=== PATIENT | female | born 1990 | race African-American/Black ===

== ENCOUNTER 2022-05-03 02:22 | Emergency (ER) | payer BC ==
[2022-05-03] MEDS ORDERED: ACETAMINOPHEN 325 MG TABLET (FP) PO ONE (03:01)
[2022-05-03] MEDS ORDERED: LIDOCAINE 5% TOPICAL PATCH TP ONE (03:01)
[2022-05-03 03:21] VITALS: BMI 22.1
[2022-05-03] MEDS ORDERED: ACETAMINOPHEN 325 MG TABLET (FP) ONE (03:36)
[2022-05-03] MEDS ORDERED: LIDOCAINE 5% TOPICAL PATCH ONE ×2 (03:36→04:26)
[2022-05-03] MEDS ORDERED: morphine CARPU-JECT 2 MG/1 ML DISP.SYRIN IVPUSH ONE (04:13)
[2022-05-03 04:33] LABS: BASO % 0.3 % (0-2.0); EOS % 2.6 % (0-4.5); HEMATOCRIT 40.9 % (32.4-45.2); HEMOGLOBIN 13.4 GM/dL (10.7-15.3); LYMPH % 7.8 % (8-40); MCH 28.6 pg (25.7-33.7); MCHC 32.8 g/dl (32.0-36.0); MEAN CELL VOLUME 87.2 fl (80-96); MEAN PLT VOLUME 9.4 fl (7.5-11.1); MONO % 6.5 % (3.8-10.2); NEUT % 82.8 % (42.8-82.8); PLATELET COUNT 199 10^3/uL (134-434); RBC 4.68 M/mm3 (3.60-5.2); RDW 14.2 % (11.6-15.6); WHITE BLOOD COUNT 11.2 K/mm3 (4.0-10.0)
[2022-05-03 06:11] LABS: CALCIUM 8.9 mg/dL (8.5-10.1)
[2022-05-03 06:12] LABS: ALBUMIN 3.2 g/dl (3.4-5.0); BLOOD UREA NITROGEN 7.6 mg/dL (7-18)
[2022-05-03 06:15] LABS: CREATININE 0.6 mg/dL (0.55-1.3)
[2022-05-03 06:16] LABS: TOT PROT 7.7 g/dl (6.4-8.2)
[2022-05-03 06:17] LABS: BILIRUBIN,TOTAL 0.4 mg/dL (0.2-1)
[2022-05-03 08:10] VITALS: BP 122/74; PULSE 75; TEMP 97.3
[2022-05-03] MEDS ORDERED: LIDOCAINE PATCH REMOVAL MC SCH (22:00)
== END 2022-05-03 07:53 | disposition home or self-care (01) ==
LOC: JER 02:22
PROC: 3E033NZ Introduction of Analgesics, Hypnotics, Sedatives into Peripheral Vein, Percutaneous Approach (ICD-10-PCS; principal; 2022-05-03)
DX: R91.1 Solitary pulmonary nodule (principal); R07.9 Chest pain, unspecified
CPT/HCPCS: 36415; 71046-TC-FY; 71275-TC; 80053; 84703; 85025; 93005; 93010; 99285-25; Q9967

== ENCOUNTER 2022-07-19 11:21 | Day surgery (SDC) | payer OTHER ==
[2022-07-19] MEDS ORDERED: FAMOTIDINE 20 MG/50 ML IVPB 20 MG/50 ML MG IVPB ONE ×2 (12:08→12:25)
[2022-07-19] MEDS ORDERED: ONDANSETRON 4 MG/2 ML VIAL IVPUSH ONE (12:08)
[2022-07-19] MEDS ORDERED: ACETAMINOPHEN 1000 MG/100 ML BAG IVPB ONE (12:08)
[2022-07-19] MEDS ORDERED: SODIUM CHLORIDE 0.9% 500 ML INFUS.BAG IV ONE (12:08)
[2022-07-19] MEDS ORDERED: ONDANSETRON 4 MG/2 ML VIAL ONE (12:24)
[2022-07-19] MEDS ORDERED: ACETAMINOPHEN INJECTION 100 ML IVPB ONE (12:24)
[2022-07-19 13:26] LABS: BASO % 0.6 % (0-2.0); EOS % 2.8 % (0-4.5); HEMATOCRIT 45.5 % (32.4-45.2); HEMOGLOBIN 14.6 GM/dL (10.7-15.3); MCH 28.7 pg (25.7-33.7); MEAN CELL VOLUME 89.5 fl (80-96); MONO % 6.9 % (3.8-10.2); NEUT % 75.7 % (42.8-82.8); PLATELET COUNT 228 10^3/uL (134-434); RBC 5.08 M/mm3 (3.60-5.2); RDW 15.8 % (11.6-15.6); WHITE BLOOD COUNT 12.1 K/mm3 (4.0-10.0)
[2022-07-19 13:31] LABS: EPI CELLS 13 /uL (0-25.1); HYALINE CASTS 1 /uL (0-3.1); URINE APPEARANCE CLEAR; URINE BACTERIA 71 /uL (0-1359); URINE BILIRUBIN NEGATIVE (NEGATIVE); URINE COLOR YELLOW; URINE GLUCOSE (UA) NEGATIVE (NEGATIVE); URINE KETONE NEGATIVE (NEGATIVE); URINE LEUK ESTERASE TRACE (NEGATIVE); URINE NITRITE NEGATIVE (NEGATIVE); URINE PROTEIN NEGATIVE (NEGATIVE); URINE RBC 24 /uL (0-23.9); URINE WBC 10 /uL (0-25.8)
[2022-07-19 13:32] LABS: HCG,QUALITATIVE URINE Negative
[2022-07-19 13:33] LABS: INR 1.26 (0.83-1.09); PROTHROMBIN TIME (PATIENT) 14.5 SEC (9.7-13.0)
[2022-07-19 13:36] LABS: ACTIVATED PTT 33.8 SECONDS (25.2-36.5)
[2022-07-19 14:16] LABS: ALBUMIN 3.6 g/dl (3.4-5.0); BILIRUBIN,TOTAL 0.4 mg/dL (0.2-1); BLOOD UREA NITROGEN 4.7 mg/dL (7-18); CALCIUM 9.5 mg/dL (8.5-10.1); CREATININE 0.7 mg/dL (0.55-1.3); TOT PROT 9.2 g/dl (6.4-8.2)
[2022-07-19] MEDS ORDERED: morphine CARPU-JECT 2 MG/1 ML DISP.SYRIN IVPUSH ONE (15:52)
[2022-07-19] MEDS ORDERED: morphine SULFATE 4 MG/ML VIAL ONE (16:23)
[2022-07-19] MEDS ORDERED: KETOROLAC TROMETHAMINE 15 MG/ML VIAL IVPUSH ONE (17:28)
[2022-07-19] MEDS ORDERED: CEFOXITIN SODIUM 1 GM in DEXTROSE 5%-WATER - 100 ML IVPB ONE (17:28)
[2022-07-19] MEDS ORDERED: KETOROLAC TROMETHAMINE 15 MG/ML VIAL ONE (17:40)
[2022-07-19] MEDS ORDERED: ONDANSETRON 4 MG/2 ML VIAL IVPUSH PRN (22:52)
[2022-07-19] MEDS ORDERED: ACETAMINOPHEN 1000 MG/100 ML BAG IVPB PRN (22:59)
[2022-07-19] MEDS ORDERED: DEXTROSE 5%-WATER - 1,000 ML IV SCH (23:00)
[2022-07-19] MEDS ORDERED: DEXTROSE 5%-NORMAL SALINE 1,000 ML IV SCH (23:45)
[2022-07-20] MEDS: PIPERACILLIN/TAZOB 3.375 GM 3.375 GM in DEXTROSE 5%-WATER - 50 ML IVPB SCH ×2 (01:25→16:18)
[2022-07-20] MEDS ORDERED: PIPERACILLIN/TAZOB 3.375 GM 3.375 GM in DEXTROSE 5%-WATER - 50 ML IVPB SCH (02:00)
[2022-07-20] MEDS ORDERED: BUDESONIDE/FORMETEROL FUMARATE 160/4.5 mcg INHALER IH PRN (05:15)
[2022-07-20] MEDS ORDERED: ALBUTEROL SO4 HFA INHALER IH PRN ×2 (05:28→16:39)
[2022-07-20 06:43] VITALS: BMI 23.2
[2022-07-20] MEDS ORDERED: ENOXAPARIN NA (PORCINE) 40 MG/0.4 ML DISP.SYRIN SQ SCH (10:00)
[2022-07-20] MEDS ORDERED: PANTOPRAZOLE SODIUM 40 MG VIAL IVPUSH SCH (10:00)
[2022-07-20 11:35] LABS: BASO % 0.3 % (0-2.0); EOS % 2.5 % (0-4.5); HEMATOCRIT 39.4 % (32.4-45.2); HEMOGLOBIN 12.9 GM/dL (10.7-15.3); LYMPH % 11.2 % (8-40); MCH 29.1 pg (25.7-33.7); MCHC 32.7 g/dl (32.0-36.0); MEAN CELL VOLUME 88.9 fl (80-96); MONO % 6.4 % (3.8-10.2); NEUT % 79.6 % (42.8-82.8); PLATELET COUNT 192 10^3/uL (134-434); RBC 4.43 M/mm3 (3.60-5.2); RDW 15.6 % (11.6-15.6); WHITE BLOOD COUNT 8.2 K/mm3 (4.0-10.0)
[2022-07-20 11:58] LABS: CHLORIDE 106 mmol/L (98-107); SODIUM 140 mmol/L (136-145)
[2022-07-20 12:01] LABS: CALCIUM 8.6 mg/dL (8.5-10.1)
[2022-07-20 12:02] LABS: ANION GAP 8 MMOL/L (8-16); CO2 26 mmol/L (21-32); GLUCOSE,RANDOM 79 mg/dL (74-106)
[2022-07-20 12:03] LABS: MAGNESIUM 2.1 mg/dL (1.8-2.4)
[2022-07-20 12:04] LABS: SGPT/ALT 19 U/L (13-61)
[2022-07-20 12:05] LABS: CREATININE 0.6 mg/dL (0.55-1.3); PHOSPHOROUS 2.9 mg/dL (2.5-4.9); SGOT/AST 13 U/L (15-37)
[2022-07-20 12:07] LABS: BILIRUBIN,TOTAL 0.4 mg/dL (0.2-1)
[2022-07-20 12:08] LABS: ALBUMIN 2.7 g/dl (3.4-5.0); ALK PHOS 92 U/L (45-117); BLOOD UREA NITROGEN 2.6 mg/dL (7-18); TOT PROT 6.9 g/dl (6.4-8.2)
[2022-07-20] MEDS ORDERED: BUPIVACAINE HCL/PF 0.5% (5MG/ML) 10 ML VIAL ONE (13:26)
[2022-07-20] MEDS ORDERED: DEXAMETHASONE SOD PHOSPHATE 4 MG/1 ML VIAL ONE (13:38)
[2022-07-20] MEDS ORDERED: ONDANSETRON 4 MG/2 ML VIAL ONE (13:38)
[2022-07-20] MEDS ORDERED: PROPOFOL 20 ML ONE (13:38)
[2022-07-20] MEDS ORDERED: ROCURONIUM BROMIDE 50 MG/5 ML SYRINGE ONE (13:39)
[2022-07-20] MEDS ORDERED: MIDAZOLAM HCL 2 MG/2 ML SINGLE DOSE VIAL ONE (13:39)
[2022-07-20] MEDS ORDERED: ONDANSETRON 4 MG/2 ML VIAL IVPUSH PRN ×3 (14:11→16:39)
[2022-07-20] MEDS ORDERED: PROMETHAZINE HCL 25 MG/1 ML VIAL IVPUSH PRN ×2 (14:11→16:39)
[2022-07-20] MEDS ORDERED: methylPREDNISolone NA SUCC 125 MG/2 ML VIAL ONE (14:25)
[2022-07-20] MEDS ORDERED: ALBUTEROL SO4 HFA INHALER IH ONE (14:25)
[2022-07-20] MEDS ORDERED: BUPIVACAINE HCL/PF 0.5% (5MG/ML) 10 ML VIAL IJ ONE (15:00)
[2022-07-20] MEDS ORDERED: NEOSTIGMINE METHYLSULFATE 0.5 MG/ML - 10 ML MDV ONE (15:26)
[2022-07-20] MEDS ORDERED: ACETAMINOPHEN INJECTION 100 ML IVPB ONE (15:33)
[2022-07-20] MEDS ORDERED: DEXTROSE 5%-NORMAL SALINE 1,000 ML IV SCH (16:39)
[2022-07-20] MEDS ORDERED: ACETAMINOPHEN 1000 MG/100 ML BAG IVPB PRN (16:39)
[2022-07-20 18:11] VITALS: RESP 18
[2022-07-21] MEDS ORDERED: PIPERACILLIN/TAZOB 3.375 GM 3.375 GM in DEXTROSE 5%-WATER - 50 ML IVPB SCH (02:00)
[2022-07-21 07:09] VITALS: BP 124/73; PULSE 73; TEMP 97.7
[2022-07-21] MEDS ORDERED: PANTOPRAZOLE SODIUM 40 MG VIAL IVPUSH SCH (10:00)
[2022-07-21 10:20] LABS: BASO % 0.2 % (0-2.0); HEMATOCRIT 37.5 % (32.4-45.2); HEMOGLOBIN 12.4 GM/dL (10.7-15.3); LYMPH % 4.7 % (8-40); MCH 29.2 pg (25.7-33.7); MEAN CELL VOLUME 88.7 fl (80-96); MEAN PLT VOLUME 9.9 fl (7.5-11.1); MONO % 5.1 % (3.8-10.2); PLATELET COUNT 211 10^3/uL (134-434); RBC 4.23 M/mm3 (3.60-5.2); RDW 15.2 % (11.6-15.6); WHITE BLOOD COUNT 14.8 K/mm3 (4.0-10.0)
[2022-07-21 10:45] LABS: ALBUMIN 2.6 g/dl (3.4-5.0); CALCIUM 8.9 mg/dL (8.5-10.1); MAGNESIUM 2.2 mg/dL (1.8-2.4)
[2022-07-21 10:48] LABS: CREATININE 0.6 mg/dL (0.55-1.3)
[2022-07-21 10:49] LABS: BILIRUBIN,TOTAL 0.4 mg/dL (0.2-1); TOT PROT 7.1 g/dl (6.4-8.2)
== END 2022-07-21 14:56 | disposition home or self-care (01) ==
LOC: JER 11:21 → UNDOADMOB 17:34 → INTOOBSV 17:34 → JERBED 17:34 → JASUSAT 17:34 → JERBED 22:52 → UNDOADMOB 22:52 → J5S 22:54 → JERBED 22:54 → J5S 23:54 → JASUSAT 07-21 14:56
PROVIDERS: ATTEND Internal Medicine
PROC: 0FT44ZZ Resection of Gallbladder, Percutaneous Endoscopic Approach (ICD-10-PCS; principal; 2022-07-19)
DX: K81.0 Acute cholecystitis (principal)
CPT/HCPCS: 0241U-QW; 36415; 74177-TC; 76705-TC; 80053; 81003; 82962; 83690; 83735; 84100; 84703; 85025; 85610; 85730; 86850; 86900; 86901; 88304-TC; 93005; 93010; 94760; 99285-25; Q9967

== ENCOUNTER 2022-08-30 09:39 | Emergency (ER) | payer OTHER ==
[2022-08-30 09:56] VITALS: BMI 23.2
[2022-08-30] MEDS ORDERED: ALBUTEROL SO4 2.5/IPRATROPIUM 0.5 INH SOL 3 ML VIAL.NEB. NEB ONE ×2 (11:02→11:20)
[2022-08-30] MEDS ORDERED: IBUPROFEN 600 MG TABLET (FP) PO ONE ×2 (12:17→12:26)
[2022-08-30 13:20] LABS: BASO % 0.8 % (0-2.0); EOS % 4.7 % (0-4.5); HEMATOCRIT 39.2 % (32.4-45.2); HEMOGLOBIN 13.1 GM/dL (10.7-15.3); LYMPH % 19.9 % (8-40); MCH 29.3 pg (25.7-33.7); MCHC 33.3 g/dl (32.0-36.0); MEAN CELL VOLUME 88.1 fl (80-96); MEAN PLT VOLUME 8.8 fl (7.5-11.1); MONO % 6.2 % (3.8-10.2); NEUT % 68.4 % (42.8-82.8); PLATELET COUNT 252 10^3/uL (134-434); RBC 4.45 M/mm3 (3.60-5.2); WHITE BLOOD COUNT 8.5 K/mm3 (4.0-10.0)
[2022-08-30 13:27] LABS: HCG,QUALITATIVE URINE Negative
[2022-08-30 13:29] LABS: EPI CELLS 9 /uL (0-25.1); HYALINE CASTS 0 /uL (0-3.1); PH,URINE 7.5 (5.0-8.0); URINE APPEARANCE CLEAR; URINE BACTERIA 13 /uL (0-1359); URINE BILIRUBIN NEGATIVE (NEGATIVE); URINE COLOR YELLOW; URINE GLUCOSE (UA) NEGATIVE (NEGATIVE); URINE KETONE NEGATIVE (NEGATIVE); URINE LEUK ESTERASE 1+ (NEGATIVE); URINE NITRITE NEGATIVE (NEGATIVE); URINE PROTEIN NEGATIVE (NEGATIVE); URINE RBC 6 /uL (0-23.9); URINE UROBILINOGEN 0.2 mg/dL (0.2-1.0); URINE WBC 31 /uL (0-25.8)
[2022-08-30 13:49] LABS: CALCIUM 8.9 mg/dL (8.5-10.1)
[2022-08-30 13:52] LABS: CREATININE 0.7 mg/dL (0.55-1.3)
[2022-08-30 14:58] VITALS: BP 109/64; PULSE 89; RESP 18; TEMP 98.6
== END 2022-08-30 15:32 | disposition home or self-care (01) ==
LOC: JER 09:39
PROC: 3E0F7GC Introduction of Other Therapeutic Substance into Respiratory Tract, Via Natural or Artificial Opening (ICD-10-PCS; principal; 2022-08-30)
DX: R06.2 Wheezing (principal)
CPT/HCPCS: 0241U-QW; 36415; 71046-TC-FY; 71275-TC; 80048; 81003; 84703; 85025; 85379; 93005; 93010; 99285-25; Q9967

== ENCOUNTER 2022-10-17 00:02 | Emergency (ER) | payer OTHER ==
[2022-10-17 00:07] VITALS: BP 137/77; PULSE 93; RESP 20; TEMP 97.4; BMI 23.0
[2022-10-17] MEDS ORDERED: predniSONE 20 MG TABLET (UD) PO ONE (00:28)
[2022-10-17] MEDS ORDERED: ALBUTEROL SO4 2.5/IPRATROPIUM 0.5 INH SOL 3 ML VIAL.NEB. NEB SCH (00:30)
[2022-10-17] MEDS ORDERED: predniSONE 20 MG TABLET (UD) ONE (00:41)
[2022-10-17] MEDS ORDERED: ALBUTEROL SO4 2.5/IPRATROPIUM 0.5 INH SOL 3 ML VIAL.NEB. NEB ONE (00:42)
== END 2022-10-17 01:43 | disposition home or self-care (01) ==
LOC: JER 00:02
PROC: 3E0F7GC Introduction of Other Therapeutic Substance into Respiratory Tract, Via Natural or Artificial Opening (ICD-10-PCS; principal; 2022-10-17)
DX: J45.901 Unspecified asthma with (acute) exacerbation (principal)
CPT/HCPCS: 0241U-QW; 99283-25

== ENCOUNTER 2023-01-18 16:51 | Emergency (ER) | payer OTHER ==
[2023-01-18 17:05] VITALS: BP 132/88; PULSE 110; RESP 22; TEMP 98.2; BMI 22.8
[2023-01-18] MEDS ORDERED: methylPREDNISolone NA SUCC 125 MG/2 ML VIAL IVPUSH ONE (17:18)
[2023-01-18] MEDS ORDERED: ALBUTEROL SO4 2.5/IPRATROPIUM 0.5 INH SOL 3 ML VIAL.NEB. NEB ONE (17:23)
[2023-01-18] MEDS: ALBUTEROL SO4 2.5/IPRATROPIUM 0.5 INH SOL 3 ML VIAL.NEB. NEB SCH ×3 (17:26→17:50)
[2023-01-18] MEDS ORDERED: MAGNESIUM SULFATE IN WATER 2 GM/50 ML IVPB IVPB ONE (17:27)
[2023-01-18] MEDS ORDERED: methylPREDNISolone NA SUCC 125 MG/2 ML VIAL ONE (17:27)
[2023-01-18 17:33] LABS: BASO % 0.4 % (0-2.0); EOS % 8.3 % (0-4.5); HEMATOCRIT 41.6 % (32.4-45.2); LYMPH % 15.2 % (8-40); MCH 29.7 pg (25.7-33.7); MCHC 33.8 g/dl (32.0-36.0); MEAN CELL VOLUME 88.1 fl (80-96); MEAN PLT VOLUME 9.1 fl (7.5-11.1); MONO % 5.8 % (3.8-10.2); NEUT % 70.3 % (42.8-82.8); PLATELET COUNT 282 10^3/uL (134-434); RBC 4.72 M/mm3 (3.60-5.2); RDW 14.9 % (11.6-15.6); VENOUS BASE EXCESS 0.8 mmol/L (-2-2); VENOUS O2 SATURATION 41.9 % (70-80); VENOUS PCO2 39.3 mmHg (38-52); VENOUS PH 7.424 (7.310-7.410); WHITE BLOOD COUNT 12.2 K/mm3 (4.0-10.0)
[2023-01-18 17:47] LABS: INR 1.17 (0.83-1.09); PROTHROMBIN TIME (PATIENT) 13.6 SEC (9.7-13.0)
[2023-01-18 17:50] LABS: ACTIVATED PTT 28.5 SECONDS (25.2-36.5)
[2023-01-18 18:26] LABS: CALCIUM 9.3 mg/dL (8.5-10.1)
[2023-01-18 18:27] LABS: BLOOD UREA NITROGEN 7.8 mg/dL (7-18); MAGNESIUM 2.2 mg/dL (1.8-2.4)
[2023-01-18 18:30] LABS: CREATININE 0.7 mg/dL (0.55-1.3)
[2023-01-18 18:31] LABS: TOT PROT 7.5 g/dl (6.4-8.2)
[2023-01-18 18:32] LABS: BILIRUBIN,TOTAL 0.3 mg/dL (0.2-1)
== END 2023-01-18 19:50 | disposition home or self-care (01) ==
LOC: JER 16:51
PROC: 3E0333Z Introduction of Anti-inflammatory into Peripheral Vein, Percutaneous Approach (ICD-10-PCS; principal; 2023-01-18)
PROC: 3E0F7GC Introduction of Other Therapeutic Substance into Respiratory Tract, Via Natural or Artificial Opening (ICD-10-PCS; 2023-01-18)
DX: J45.909 Unspecified asthma, uncomplicated (principal)
CPT/HCPCS: 0241U-QW; 36415; 71045-TC-FY; 80053; 82803; 83735; 84703; 85025; 85610; 85730; 99291

== ENCOUNTER 2023-03-08 04:56 | Inpatient (IN) | payer OTHER ==
[2023-03-08 06:26] LABS: BASO % 0.7 % (0-2.0); EOS % 4.2 % (0-4.5); HEMATOCRIT 44.3 % (32.4-45.2); HEMOGLOBIN 15.4 GM/dL (10.7-15.3); LYMPH % 21.2 % (8-40); MCHC 34.8 g/dl (32.0-36.0); MEAN CELL VOLUME 89.1 fl (80-96); MONO % 3.7 % (3.8-10.2); NEUT % 70.2 % (42.8-82.8); PLATELET COUNT 309 10^3/uL (134-434); RBC 4.97 M/mm3 (3.60-5.2); RDW 15.5 % (11.6-15.6); WHITE BLOOD COUNT 12.3 K/mm3 (4.0-10.0)
[2023-03-08 06:37] LABS: CALCIUM 9.8 mg/dL (8.5-10.1)
[2023-03-08 06:38] LABS: ALBUMIN 3.9 g/dl (3.4-5.0); BLOOD UREA NITROGEN 5.9 mg/dL (7-18)
[2023-03-08 06:41] LABS: CREATININE 0.8 mg/dL (0.55-1.3)
[2023-03-08 06:43] LABS: BILIRUBIN,TOTAL 0.5 mg/dL (0.2-1); TOT PROT 9.1 g/dl (6.4-8.2)
[2023-03-08 06:44] LABS: INR 1.16 (0.83-1.09); PROTHROMBIN TIME (PATIENT) 13.4 SEC (9.7-13.0)
[2023-03-08 06:46] LABS: ACTIVATED PTT 32.2 SECONDS (25.2-36.5)
[2023-03-08] MEDS ORDERED: HEPARIN NA (PORCINE) 5,000 UNITS/ML 1ML VIAL ONE (09:16)
[2023-03-08] MEDS ORDERED: DEXAMETHASONE SOD PHOSPHATE 10 MG/1 ML VIAL ONE (09:41)
[2023-03-08] MEDS ORDERED: BUPIVACAINE HCL/PF 0.5% (5MG/ML) 10 ML VIAL ONE (09:41)
[2023-03-08] MEDS ORDERED: ceFAZolin SODIUM 1 GM VIAL IVPB ONE (10:01)
[2023-03-08] MEDS ORDERED: BISACODYL 5 MG TABLET.DR (FP) PO PRN (11:42)
[2023-03-08] MEDS ORDERED: ONDANSETRON 4 MG/2 ML VIAL IVPUSH PRN ×2 (11:42)
[2023-03-08] MEDS ORDERED: DOCUSATE SODIUM 100 MG CAPSULE (FP) PO PRN (11:42)
[2023-03-08] MEDS ORDERED: IBUPROFEN 800 MG/8 ML IJ IVPB PRN (11:42)
[2023-03-08] MEDS ORDERED: oxyCODONE HCL 5 MG TABLET PO PRN (11:42)
[2023-03-08] MEDS ORDERED: ACETAMINOPHEN 325 MG TABLET (FP) PO PRN (11:42)
[2023-03-08 12:21] VITALS: BMI 21.9
[2023-03-08] MEDS: LACTATED RINGERS SOLUTION 1,000 ML IV SCH ×2 (14:00→22:00)
[2023-03-08] MEDS: CEFAZOLIN 1 GM in DEXTROSE 5%-WATER - 50 ML IVPB SCH (17:41)
[2023-03-08] MEDS: oxyCODONE HCL 5 MG TABLET PO PRN ×2 (18:13→22:10)
[2023-03-09] MEDS: CEFAZOLIN 1 GM in DEXTROSE 5%-WATER - 50 ML IVPB SCH ×2 (02:22→11:03)
[2023-03-09] MEDS: oxyCODONE HCL 5 MG TABLET PO PRN ×2 (02:28→06:41)
[2023-03-09 08:22] LABS: HEMOGLOBIN 12.4 GM/dL (10.7-15.3); MCH 29.9 pg (25.7-33.7); MCHC 33.6 g/dl (32.0-36.0); MEAN PLT VOLUME 9.7 fl (7.5-11.1); PLATELET COUNT 261 10^3/uL (134-434); RBC 4.15 M/mm3 (3.60-5.2); RDW 15.6 % (11.6-15.6); WHITE BLOOD COUNT 17.9 K/mm3 (4.0-10.0)
[2023-03-09] MEDS: LACTATED RINGERS SOLUTION 1,000 ML IV SCH ×2 (09:02→18:46)
[2023-03-09] MEDS: KETOROLAC TROMETHAMINE 15 MG/ML VIAL IVPUSH SCH ×3 (11:03→23:40)
[2023-03-09] MEDS: ACETAMINOPHEN 325 MG TABLET (FP) PO SCH ×3 (11:04→21:36)
[2023-03-09] MEDS ORDERED: IBUPROFEN 600 MG TABLET (FP) PO PRN (11:42)
[2023-03-09 12:27] VITALS: RESP 18
[2023-03-09 16:05] LABS: BASO % 0.6 % (0-2.0); HEMATOCRIT 36.6 % (32.4-45.2); HEMOGLOBIN 12.3 GM/dL (10.7-15.3); LYMPH % 10.6 % (8-40); MCH 30.3 pg (25.7-33.7); MCHC 33.6 g/dl (32.0-36.0); MEAN CELL VOLUME 90.2 fl (80-96); MEAN PLT VOLUME 9.9 fl (7.5-11.1); MONO % 7.2 % (3.8-10.2); NEUT % 81.6 % (42.8-82.8); PLATELET COUNT 247 10^3/uL (134-434); RBC 4.05 M/mm3 (3.60-5.2); RDW 15.3 % (11.6-15.6); WHITE BLOOD COUNT 19.4 K/mm3 (4.0-10.0)
[2023-03-10] MEDS: ACETAMINOPHEN 325 MG TABLET (FP) PO SCH ×3 (04:18→10:01)
[2023-03-10] MEDS: KETOROLAC TROMETHAMINE 15 MG/ML VIAL IVPUSH SCH ×3 (04:19→10:03)
[2023-03-10 05:23] VITALS: BP 146/80; PULSE 62; TEMP 98
[2023-03-10 08:54] LABS: BASO % 0.3 % (0-2.0); EOS % 0.8 % (0-4.5); HEMATOCRIT 34.3 % (32.4-45.2); HEMOGLOBIN 11.7 GM/dL (10.7-15.3); LYMPH % 27.2 % (8-40); MCH 30.4 pg (25.7-33.7); MCHC 34.1 g/dl (32.0-36.0); MEAN CELL VOLUME 89.1 fl (80-96); MEAN PLT VOLUME 9.8 fl (7.5-11.1); MONO % 7.1 % (3.8-10.2); NEUT % 64.6 % (42.8-82.8); PLATELET COUNT 214 10^3/uL (134-434); RBC 3.85 M/mm3 (3.60-5.2); RDW 15.2 % (11.6-15.6); WHITE BLOOD COUNT 9.5 K/mm3 (4.0-10.0)
== END 2023-03-10 13:55 | disposition home or self-care (01) | DRG 519 ==
LOC: JER 04:56 → JERBED 05:08 → J8W 08:54 → OBSVTOIN 11:42
PROVIDERS: ADMIT Specialist; ATTEND Specialist
PROC: 0UB90ZZ Excision of Uterus, Open Approach (ICD-10-PCS; principal; 2023-03-08 09:00)
DX: D25.9 Leiomyoma of uterus, unspecified (principal); J45.909 Unspecified asthma, uncomplicated; R10.2 Pelvic and perineal pain
CPT/HCPCS: 0241U-QW; 36415; 80053; 84703; 85025; 85027; 85610; 85730; 86850; 86900; 86901; 88305-TC; 93005; 93010; 94760; 99285-25; G0378; J1100; J1644

== ENCOUNTER 2023-08-02 17:47 | Emergency (ER) | payer OTHER ==
[2023-08-02 18:01] VITALS: BP 149/90; PULSE 92; RESP 17; TEMP 98.2; BMI 25.1
[2023-08-02 19:25] LABS: EOS % 6.6 % (0-4.5); HEMATOCRIT 38.4 % (32.4-45.2); HEMOGLOBIN 13.1 GM/dL (10.7-15.3); MCH 29.5 pg (25.7-33.7); MCHC 34.2 g/dl (32.0-36.0); MEAN CELL VOLUME 86.1 fl (80-96); MONO % 5.7 % (3.8-10.2); NEUT % 63.7 % (42.8-82.8); PLATELET COUNT 271 10^3/uL (134-434); RBC 4.45 M/mm3 (3.60-5.2); RDW 14.8 % (11.6-15.6); WHITE BLOOD COUNT 10.9 K/mm3 (4.0-10.0)
[2023-08-02 19:36] LABS: POTASSIUM 3.8 mmol/L (3.5-5.1)
[2023-08-02 19:39] LABS: CALCIUM 8.7 mg/dL (8.5-10.1)
[2023-08-02 19:40] LABS: ALBUMIN 3.2 g/dl (3.4-5.0); BLOOD UREA NITROGEN 8.5 mg/dL (7-18)
[2023-08-02 19:43] LABS: CREATININE 0.8 mg/dL (0.55-1.3)
[2023-08-02 19:44] LABS: TOT PROT 7.6 g/dl (6.4-8.2)
[2023-08-02 19:45] LABS: BILIRUBIN,TOTAL 0.3 mg/dL (0.2-1)
== END 2023-08-02 21:47 | disposition home or self-care (01) ==
LOC: JER 17:47
DX: N93.9 Abnormal uterine and vaginal bleeding, unspecified (principal); D25.9 Leiomyoma of uterus, unspecified; R10.30 Lower abdominal pain, unspecified
CPT/HCPCS: 36415; 76856-TC; 80053; 84703; 85025; 86850; 86900; 86901; 99284-25

== ENCOUNTER 2023-08-03 20:23 | Emergency (ER) | payer OTHER ==
[2023-08-03 20:35] VITALS: PULSE 108; RESP 18; TEMP 98.4; BMI 25.1
[2023-08-03 23:06] VITALS: BP 133/82
== END 2023-08-03 23:11 | disposition home or self-care (01) ==
LOC: JER 20:23
DX: I10 Essential (primary) hypertension (principal); N93.9 Abnormal uterine and vaginal bleeding, unspecified
CPT/HCPCS: 85379; 99283-25

== ENCOUNTER 2023-09-27 10:41 | Emergency (ER) | payer OTHER ==
[2023-09-27 11:00] VITALS: BP 139/87; PULSE 77; RESP 18; TEMP 97.8; BMI 23.8
[2023-09-27 12:21] LABS: BASO % 0.4 % (0-2.0); EOS % 6.6 % (0-4.5); HEMATOCRIT 42.2 % (32.4-45.2); HEMOGLOBIN 13.9 GM/dL (10.7-15.3); LYMPH % 19.1 % (8-40); MCH 28.9 pg (25.7-33.7); MEAN CELL VOLUME 87.6 fl (80-96); MEAN PLT VOLUME 9.5 fl (7.5-11.1); MONO % 4.5 % (3.8-10.2); NEUT % 69.4 % (42.8-82.8); PLATELET COUNT 268 10^3/uL (134-434); RBC 4.82 M/mm3 (3.60-5.2); WHITE BLOOD COUNT 11.2 K/mm3 (4.0-10.0)
[2023-09-27 12:30] LABS: POTASSIUM 4.9 mmol/L (3.5-5.1)
[2023-09-27 12:32] LABS: CALCIUM 8.7 mg/dL (8.5-10.1)
[2023-09-27 12:33] LABS: ALBUMIN 3.2 g/dl (3.4-5.0)
[2023-09-27 12:36] LABS: CREATININE 0.7 mg/dL (0.55-1.3)
[2023-09-27 12:37] LABS: BILIRUBIN,TOTAL 0.3 mg/dL (0.2-1); TOT PROT 7.5 g/dl (6.4-8.2)
[2023-09-27 12:40] LABS: N-TERMINAL BNP 167.2 pg/ml (5-125)
[2023-09-27 13:07] LABS: INR 1.17 (0.83-1.09); PROTHROMBIN TIME (PATIENT) 13.5 SEC (9.7-13.0)
[2023-09-27 13:10] LABS: ACTIVATED PTT 27.3 SECONDS (25.2-36.5)
[2023-09-27] MEDS ORDERED: DEXAMETHASONE SOD PHOSPHATE 4 MG/1 ML VIAL IVPUSH ONE (13:32)
[2023-09-27] MEDS ORDERED: DEXAMETHASONE SOD PHOSPHATE 10 MG/1 ML VIAL ONE (13:48)
== END 2023-09-27 13:58 | disposition home or self-care (01) ==
LOC: JER 10:41
PROC: 3E033GC Introduction of Other Therapeutic Substance into Peripheral Vein, Percutaneous Approach (ICD-10-PCS; principal; 2023-09-27)
DX: R07.89 Other chest pain (principal); R06.02 Shortness of breath; Z20.822 Contact with and (suspected) exposure to COVID-19
CPT/HCPCS: 0241U-QW; 36415; 71046-TC-FY; 80053; 83880; 84484; 84703; 85025; 85379; 85610; 85730; 93005; 93010; 99285-25

== ENCOUNTER 2024-07-25 15:25 | Emergency (ER) | payer OTHER ==
[2024-07-25 15:30] VITALS: BP 142/87; PULSE 84; TEMP 97.8; BMI 23.6
[2024-07-25] MEDS ORDERED: ALBUTEROL SO4 2.5/IPRATROPIUM 0.5 INH SOL 3 ML VIAL.NEB. NEB ONE (15:42)
[2024-07-25] MEDS ORDERED: predniSONE 20 MG TABLET (UD) ONE (15:47)
[2024-07-25 15:49] VITALS: RESP 22
[2024-07-25] MEDS: ALBUTEROL SO4 2.5/IPRATROPIUM 0.5 INH SOL 3 ML VIAL.NEB. NEB SCH (15:50)
[2024-07-25] MEDS: predniSONE 20 MG TABLET (UD) PO ONE (15:50)
== END 2024-07-25 16:48 | disposition home or self-care (01) ==
LOC: JER 15:25
PROC: 3E0F7GC Introduction of Other Therapeutic Substance into Respiratory Tract, Via Natural or Artificial Opening (ICD-10-PCS; principal; 2024-07-25)
DX: J45.901 Unspecified asthma with (acute) exacerbation (principal); R06.02 Shortness of breath
CPT/HCPCS: 99283-25